=== PATIENT | female | born 1985 | race Caucasian/White ===

== ENCOUNTER 2018-11-05 22:20 | Inpatient (IN) | payer OTHER, MEDICAID ==
[2018-11-05] MEDS: CEFTRIAXONE 1 GM/50 ML (PMX) 50 ML IVPB (22:58)
[2018-11-05] MEDS: SODIUM CHLORIDE 0.9% 1L BAG IV* (22:59)
[2018-11-05 23:01] LABS: ADD MAN DIFF? NO
[2018-11-05] MEDS: ACETAMINOPHEN 325 MG TAB PO (23:05)
[2018-11-05 23:11] LABS: WHITE BLOOD COUNT 16.4 10^3/ul (4.8-10.8)
[2018-11-05 23:11] LABS: BASOPHILS % 0.2 % (0.0-2.0); EOSINOPHILS # 0.1 10^3/ul (0.0-0.5); EOSINOPHILS % 0.6 % (0.0-7.0); HEMOGLOBIN 13.4 g/dl (12.0-16.0); LYMPHOCYTES # 2.8 10^3/ul (0.8-2.9); MEAN CORPUSCULAR HEMOGLOBIN 27.1 pg (29.0-33.0); MEAN CORPUSCULAR HGB CONC 32.7 g/dl (32.0-37.0); MEAN PLATELET VOLUME 9.8 fl (7.4-10.4); MONOCYTE # 0.8 10^3/ul (0.3-0.9); NEUTROPHIL # 12.6 10^3/ul (1.6-7.5); NEUTROPHILS % 76.3 % (39.0-77.0); PLATELET COUNT 344 10^3/UL (140-415); RED BLOOD COUNT 4.94 10^6/ul (4.20-5.40); RED CELL DISTRIBUTION WIDTH 12.5 % (11.5-14.5)
[2018-11-05 23:15] LABS: ADD UMIC YES; UR ASCORBIC ACID NEGATIVE (NEGATIVE); UR BILIRUBIN (Dip) NEGATIVE (NEGATIVE); UR BLOOD (Dip) 2+ mg/dL (NEGATIVE); UR CLARITY CLEAR (CLEAR); UR COLOR YELLOW (YELLOW); UR GLUCOSE (Dip) NEGATIVE (NEGATIVE); UR KETONES (Dip) NEGATIVE (NEGATIVE); UR LEUKOCYTE ESTERASE (Dip) NEGATIVE Leu/ul (NEGATIVE); UR NITRITE (Dip) NEGATIVE (NEGATIVE); UR RBC 5 /HPF (0-5); UR SPECIFIC GRAVITY (Dip) 1.014 (1.003-1.030); UR TOTAL PROTEIN (Dip) NEGATIVE (NEGATIVE); UR UROBILINOGEN (Dip) NEGATIVE (NEGATIVE); UR WBC 1 /HPF (0-5)
[2018-11-05 23:30] LABS: ALANINE AMINOTRANSFERASE 36 IU/L (13-69); ALBUMIN 4.2 g/dl (3.3-4.9); ALBUMIN/GLOBULIN RATIO 1.16; ALKALINE PHOSPHATASE 112 IU/L (42-121); ANION GAP 14 (5-13); ASPARTATE AMINO TRANSFERASE 20 IU/L (15-46); BILIRUBIN,INDIRECT 0.3 mg/dl (0-1.1); BILIRUBIN,TOTAL 0.3 mg/dl (0.2-1.3); BLOOD UREA NITROGEN 21 mg/dl (7-20); CALCIUM 9.6 mg/dl (8.4-10.2); CARBON DIOXIDE 24 mmol/L (21-31); CHLORIDE 104 mmol/L (97-110); CREATININE 0.61 mg/dl (0.44-1.00); Estimated GFR > 60 mL/min (>60); GLUCOSE 106 mg/dl (70-220); INR 1.01; POTASSIUM 4.1 mmol/L (3.5-5.1); PROTIME 13.4 Sec (11.9-14.9); SODIUM 142 mmol/L (135-144); TOTAL PROTEIN 7.8 g/dl (6.1-8.1)
[2018-11-05] MEDS ORDERED: ACETAMINOPHEN 325 MG TAB PO (23:30)
[2018-11-05] MEDS ORDERED: ONDANSETRON 4 MG INJ IV (23:30)
[2018-11-05 23:31] LABS: PARTIAL THROMBOPLASTIN TIME 28.3 Sec (23.0-35.0)
[2018-11-05 23:41] LABS: TROPONIN-I < 0.012 ng/ml (0.000-0.120)
[2018-11-06] MEDS ORDERED: ACETAMINOPHEN 325 MG TAB PO
[2018-11-06] MEDS: AZITHROMYCIN 500MG/NS (PMX) 250 ML IVPB (00:10)
[2018-11-06] MEDS: SOD CHLORIDE 0.9% 1,000 ML IV ×4 (03:04→22:02)
[2018-11-06] MEDS: morphine 4 MG/ML VIAL IV ×6 (04:15→23:16)
[2018-11-06] MEDS: LEVOFLOXACIN 750MG/D5W (PMX) 150 ML IVPB (09:40)
[2018-11-06] MEDS: CEFTRIAXONE 1 GM/50 ML (PMX) 50 ML IVPB (11:34)
[2018-11-06] MEDS: DIPHENHYDRAMINE 50 MG CAP PO (22:04)
[2018-11-07 05:32] LABS: ADD MAN DIFF? NO
[2018-11-07 05:42] LABS: WHITE BLOOD COUNT 6.9 10^3/ul (4.8-10.8)
[2018-11-07 05:42] LABS: BASOPHILS % 0.3 % (0.0-2.0); EOSINOPHILS # 0.2 10^3/ul (0.0-0.5); EOSINOPHILS % 2.3 % (0.0-7.0); HEMOGLOBIN 11.5 g/dl (12.0-16.0); LYMPHOCYTES # 3.1 10^3/ul (0.8-2.9); LYMPHOCYTES % 45.5 % (15.0-51.0); MEAN CORPUSCULAR HEMOGLOBIN 26.7 pg (29.0-33.0); MEAN CORPUSCULAR HGB CONC 31.9 g/dl (32.0-37.0); MEAN CORPUSCULAR VOLUME 83.5 fl (82.0-101.0); MONOCYTE # 0.6 10^3/ul (0.3-0.9); MONOCYTES % 8.9 % (0.0-11.0); NEUTROPHIL # 2.9 10^3/ul (1.6-7.5); NEUTROPHILS % 42.1 % (39.0-77.0); PLATELET COUNT 271 10^3/UL (140-415); RED BLOOD COUNT 4.31 10^6/ul (4.20-5.40); RED CELL DISTRIBUTION WIDTH 12.4 % (11.5-14.5)
[2018-11-07] MEDS: DIPHENHYDRAMINE 50 MG CAP PO (06:12)
[2018-11-07] MEDS: SOD CHLORIDE 0.9% 1,000 ML IV (06:13)
[2018-11-07] MEDS: morphine 4 MG/ML VIAL IV (09:55)
[2018-11-07] MEDS: CEFTRIAXONE 1 GM/50 ML (PMX) 50 ML IVPB (11:06)
== END 2018-11-07 13:45 | disposition home or self-care (01) | DRG 864 ==
LOC: E/R 22:20 → PP2 23:29
PROVIDERS: Internal Medicine
DX: R50.9 Fever, unspecified (principal); R65.10 Systemic inflammatory response syndrome (SIRS) of non-infectious origin without acute organ dysfunction; E03.9 Hypothyroidism, unspecified; R51 Headache
CPT/HCPCS: 36415; 70450; 71045; 80053; 81001; 81025; 83605; 84484; 85025; 85610; 85730; 87040-91; 87086; 87400; 93005; 96374; 99285-25

== ENCOUNTER 2018-11-12 21:54 | Emergency (ER) | payer OTHER ==
[2018-11-12 23:37] LABS: ADD MAN DIFF? NO
[2018-11-12] MEDS: KETOROLAC 30 MG INJ IV (23:43)
[2018-11-12] MEDS: SOD CHLORIDE 0.9% 500 ML IV (23:43)
[2018-11-12 23:45] LABS: BASOPHIL # 0.1 10^3/ul (0.0-0.1); BASOPHILS % 0.6 % (0.0-2.0); EOSINOPHILS # 0.1 10^3/ul (0.0-0.5); EOSINOPHILS % 1.6 % (0.0-7.0); HEMATOCRIT 37.8 % (37.0-47.0); HEMOGLOBIN 12.8 g/dl (12.0-16.0); LYMPHOCYTES # 3.8 10^3/ul (0.8-2.9); LYMPHOCYTES % 43.2 % (15.0-51.0); MEAN CORPUSCULAR HGB CONC 33.9 g/dl (32.0-37.0); MEAN CORPUSCULAR VOLUME 79.7 fl (82.0-101.0); MEAN PLATELET VOLUME 10.4 fl (7.4-10.4); MONOCYTE # 0.6 10^3/ul (0.3-0.9); MONOCYTES % 6.9 % (0.0-11.0); NEUTROPHIL # 4.2 10^3/ul (1.6-7.5); NEUTROPHILS % 47.2 % (39.0-77.0); PLATELET COUNT 310 10^3/UL (140-415); RED BLOOD COUNT 4.74 10^6/ul (4.20-5.40); RED CELL DISTRIBUTION WIDTH 12.3 % (11.5-14.5)
[2018-11-12 23:45] LABS: WHITE BLOOD COUNT 8.9 10^3/ul (4.8-10.8)
[2018-11-13 00:03] LABS: ANION GAP 9 (5-13); CARBON DIOXIDE 25 mmol/L (21-31); CHLORIDE 107 mmol/L (97-110); GLUCOSE 96 mg/dl (70-220); POTASSIUM 3.9 mmol/L (3.5-5.1); SODIUM 141 mmol/L (135-144)
[2018-11-13 00:04] LABS: ALANINE AMINOTRANSFERASE 23 IU/L (13-69); ALBUMIN 4.1 g/dl (3.3-4.9); ALBUMIN/GLOBULIN RATIO 1.13; ALKALINE PHOSPHATASE 88 IU/L (42-121); ASPARTATE AMINO TRANSFERASE 17 IU/L (15-46); BILIRUBIN,INDIRECT 0.2 mg/dl (0-1.1); BILIRUBIN,TOTAL 0.2 mg/dl (0.2-1.3); BLOOD UREA NITROGEN 17 mg/dl (7-20); CALCIUM 9.7 mg/dl (8.4-10.2); CREATININE 0.56 mg/dl (0.44-1.00); Estimated GFR > 60 mL/min (>60); TOTAL PROTEIN 7.7 g/dl (6.1-8.1)
[2018-11-13 00:15] LABS: B-TYPE NATRIURETIC PEPTIDE 40 PG/ML (0-125); TROPONIN-I < 0.012 ng/ml (0.000-0.120)
[2018-11-13 00:20] LABS: FREE THYROXINE INDEX (Calc) 6.01 ug/ml (0.65-3.89); T3 UPTAKE 37.8 % (23.5-40.5); T4 (THYROXINE) 15.9 ug/dl (5.5-11.0)
[2018-11-13 00:37] LABS: THYROID STIMULATING HORMONE < 0.015 MIU/L (0.465-4.680)
[2018-11-13 00:41] LABS: ADD UMIC YES; UR ASCORBIC ACID NEGATIVE (NEGATIVE); UR BACTERIA FEW /HPF (NONE SEEN); UR BILIRUBIN (Dip) NEGATIVE (NEGATIVE); UR BLOOD (Dip) 2+ mg/dL (NEGATIVE); UR CLARITY CLEAR (CLEAR); UR COLOR YELLOW (YELLOW); UR GLUCOSE (Dip) NEGATIVE (NEGATIVE); UR KETONES (Dip) NEGATIVE (NEGATIVE); UR LEUKOCYTE ESTERASE (Dip) NEGATIVE Leu/ul (NEGATIVE); UR NITRITE (Dip) NEGATIVE (NEGATIVE); UR RBC 0 /HPF (0-5); UR TOTAL PROTEIN (Dip) NEGATIVE (NEGATIVE); UR UROBILINOGEN (Dip) NEGATIVE (NEGATIVE); UR WBC 0 /HPF (0-5)
[2018-11-13] MEDS: LORAZEPAM 2 MG INJ IV (01:28)
== END 2018-11-13 03:21 | disposition home or self-care (01) ==
LOC: E/R 21:54
DX: R07.9 Chest pain, unspecified (principal)
CPT/HCPCS: 36415; 71045; 80053; 81001; 81025; 83880; 84436; 84443; 84479; 84484; 85025; 93005; 96374; 96375; 99285-25